=== PATIENT | female | born 1950 | race Caucasian/White ===

== ENCOUNTER 2017-09-20 16:23 | Emergency (ER) | payer MEDICARE, BC ==
[~2017-09-20] VITALS: Ht 160 cm; Wt 60.0 kg
[~2017-09-20 16:23] MED LIST: ASPI-1265 PO; LISI-600 PO; SYN0.025T PO
[2017-09-20 16:50] LABS: BASOPHILS % (AUTO) 0.1 % (0-1); EOSINOPHILS # (AUTO) 0.1 X10'3 (0-0.9); HEMATOCRIT 38.2 % (35.0-45.0); HEMOGLOBIN 13.1 g/dl (12.0-16.0); LYMPHOCYTES # (AUTO) 1.6 X10'3 (1.1-4.8); LYMPHOCYTES % (AUTO) 12.8 % (21-51); MEAN CORPUSCULAR HEMOGLOBIN 32.5 PG (27.0-31.0); MEAN CORPUSCULAR HGB CONC 34.3 % (33.0-36.5); MEAN CORPUSCULAR VOLUME 94.6 FL (78-98); MEAN PLATELET VOLUME 7.5 FL (7.4-10.4); MONOCYTES # (AUTO) 1.1 X10'3 (0-0.9); MONOCYTES % (AUTO) 9.4 % (2-12); NEUTROPHILS # (AUTO) 9.3 X10'3 (1.8-7.7); NEUTROPHILS % (AUTO) 76.7 % (42-75); PLATELET COUNT 229 X10'3 (140-440); RED BLOOD COUNT 4.04 X10'6 (4.20-5.60); RED CELL DISTRIBUTION WIDTH 13.6 % (11.5-14.5); WHITE BLOOD COUNT 12.2 X10'3 (4.5-11.0)
[2017-09-20 17:05] LABS: ALANINE AMINOTRANSFERASE 29 U/L (12-78); ALBUMIN 3.6 G/DL (3.4-5.0); ALBUMIN/GLOBULIN RATIO 0.9 (1.1-1.5); ALKALINE PHOSPHATASE 101 IU/L (46-116); ANION GAP 9 (8-16); ASPARTATE AMINO TRANSFERASE 9 U/L (10-37); BILIRUBIN,TOTAL 0.2 MG/DL (0.1-1.0); BLOOD UREA NITROGEN 16 MG/DL (7-18); BUN/CREATININE RATIO 15.8 (6.6-38.0); CALCIUM 8.6 MG/DL (8.5-10.1); CHLORIDE 104 MMOL/L (99-107); CREATININE 1.01 MG/DL (0.40-0.90); GLUCOSE 130 MG/DL (70-104); LIPASE 104 U/L (73-393); MAGNESIUM 2.1 MG/DL (1.5-2.4); POTASSIUM 4.1 MMOL/L (3.5-5.1); SODIUM 140 MMOL/L (135-145); TOTAL CARBON DIOXIDE 27.5 MMOL/L (24-32); TOTAL PROTEIN 7.7 G/DL (6.4-8.2); eGFR 55 ML/MIN
[2017-09-20] MEDS ORDERED: ondansetron/PF 4mg/2ml inj IV ONE (17:45)
[2017-09-20] MEDS ORDERED: morphine 4 MG/ML inj SYRINge IV ONE (17:45)
[2017-09-20] MEDS ORDERED: normal saline 1000ML IV soln IVB ONE (17:45)
[2017-09-20 17:57] LABS: COLOR,URINE YELLOW (Yellow); GLUCOSE, URINE NEGATIVE (Neg); KETONES,URINE TRACE mg/dl (Neg); LEUKOCYTE ESTERASE ,URINE SMALL (Neg); NITRITES, URINE NEGATIVE (Neg); OCCULT BLOOD,URINE NEGATIVE (Neg); PROTEIN,URINE NEGATIVE (Neg); UROBILINOGEN,URINE 0.2 E.U/dL (0.2-1.0)
[2017-09-20 18:00] LABS: CLARITY,URINE SLIGHTLY CLOUDY (Clear); UA COLLECTION TYPE CLN CATCH MIDSTREAM
[2017-09-20 18:07] LABS: BACTERIA,URINE FEW /HPF (Neg); MUCUS STRANDS MODERATE /LPF (Neg); RBC,URINE NONE SEEN /HPF (0-2); SQUAMOUS EPITHELIAL CELL,UR FEW /LPF (FEW)
[2017-09-20 18:11] LABS: WBC CLUMPS,URINE FEW /HPF (NEGATIVE)
[2017-09-20] MEDS ORDERED: ciprofloxacin 250mg tablet PO ONE (18:55)
[2017-09-20] MEDS ORDERED: metroNIDAZOLE 500mg tablet PO ONE (18:55)
[2017-09-20] MEDS ORDERED: METR500T4 PO (19:12)
[2017-09-20] MEDS ORDERED: HYDR-3965 PO (19:12)
[2017-09-20] MEDS ORDERED: ONDA4TAB12 PO (19:12)
[2017-09-20] MEDS ORDERED: CIPR-230 PO (19:12)
[2017-09-20 19:45] VITALS: BP 153/86
== END 2017-09-20 19:40 | disposition home or self-care (01) ==
LOC: ER 16:24
DX: K57.32 Diverticulitis of large intestine without perforation or abscess without bleeding (principal); R10.30 Lower abdominal pain, unspecified; E78.00 Pure hypercholesterolemia, unspecified; I10 Essential (primary) hypertension; Z86.73 Personal history of transient ischemic attack (TIA), and cerebral infarction without residual deficits; Z90.710 Acquired absence of both cervix and uterus; Z79.82 Long term (current) use of aspirin; Z79.899 Other long term (current) drug therapy; Z88.6 Allergy status to analgesic agent; Z88.8 Allergy status to other drugs, medicaments and biological substances; Z91.011 Allergy to milk products
CPT/HCPCS: 36415; 74176; 80053; 81001; 83690; 83735; 84484; 85025; 87088; 96374; 96375; 99285; J2270; J2405; J3490; J7030

== ENCOUNTER 2020-10-19 06:11 | Emergency (ER) | payer MEDICARE, OTHER ==
[~2020-10-19] VITALS: Ht 160 cm; Wt 56.4 kg
[~2020-10-19 06:11] MED LIST changes: -LISI-600 PO; +LISI20TA28 PO; +ONDA4TAB12 PO
[2020-10-19 06:29] VITALS: BP 132/65
[2020-10-19 07:04] LABS: CLARITY,URINE CLOUDY (Clear); COLOR,URINE YELLOW (Yellow); GLUCOSE, URINE NEGATIVE (Neg); KETONES,URINE NEGATIVE (Neg); LEUKOCYTE ESTERASE ,URINE LARGE (Neg); NITRITES, URINE POSITIVE (Neg); OCCULT BLOOD,URINE SMALL (Neg); PH,URINE 6.5 (4.8-8.0); PROTEIN,URINE NEGATIVE (Neg); UROBILINOGEN,URINE 0.2 E.U/dL (0.2-1.0)
[2020-10-19 07:11] LABS: UA COLLECTION TYPE CLN CATCH MIDSTREAM
[2020-10-19 07:12] LABS: WBC,URINE TNTC /HPF (0-4)
[2020-10-19 07:13] LABS: BACTERIA,URINE 4+ /HPF (Neg); MUCUS STRANDS NONE SEEN /LPF (Neg); RBC,URINE NONE SEEN /HPF (0-2); SQUAMOUS EPITHELIAL CELL,UR FEW /LPF (FEW)
[2020-10-19] MEDS ORDERED: DOXYCYCLINE 100MG CAPSULE PO STA (07:31)
[2020-10-19] MEDS ORDERED: PHEN-824 PO (07:33)
[2020-10-19] MEDS ORDERED: DOXY100C2 PO (07:33)
[2020-10-19] MEDS ORDERED: phenazopyridine 100mg tablet PO ONE (07:35)
== END 2020-10-19 08:19 | disposition home or self-care (01) ==
LOC: ER 06:12
DX: S60.221A Contusion of right hand, initial encounter (principal); N39.0 Urinary tract infection, site not specified; E78.00 Pure hypercholesterolemia, unspecified; I10 Essential (primary) hypertension; Z91.011 Allergy to milk products; Z88.1 Allergy status to other antibiotic agents; Z79.899 Other long term (current) drug therapy; X58.XXXA Exposure to other specified factors, initial encounter; Y93.89 Activity, other specified; Y92.89 Other specified places as the place of occurrence of the external cause; Y99.8 Other external cause status
CPT/HCPCS: 73130; 81001; 87077; 87088; 87186; 99284

== ENCOUNTER 2023-01-19 05:48 | Emergency (ER) | payer MEDICARE ==
[~2023-01-19] VITALS: Ht 160 cm; Wt 59.8 kg
[~2023-01-19 05:48] MED LIST changes: +PHEN-824 PO
[2023-01-19 05:51] VITALS: BP 180/84; PULSE 71; RESP 16; TEMP 97.8; O2SAT 99
== END 2023-01-19 10:44 | disposition home or self-care (01) ==
LOC: ER 05:48
DX: R22.1 Localized swelling, mass and lump, neck (principal); I10 Essential (primary) hypertension; E78.00 Pure hypercholesterolemia, unspecified; Z91.011 Allergy to milk products; Z88.8 Allergy status to other drugs, medicaments and biological substances; Z88.5 Allergy status to narcotic agent; Z91.82 Personal history of military deployment; Z79.899 Other long term (current) drug therapy; Z90.710 Acquired absence of both cervix and uterus
CPT/HCPCS: 76882; 99284

== ENCOUNTER 2024-12-04 09:16 | Outpatient (CLI) | payer MEDICARE ==
[~2024-12-04 09:16] MED LIST changes: +ONDA-243 PO; -ONDA4TAB12 PO
--- NOTE | 2024-12-04 13:18 | RADIOLOGY REPORT ---
EXAM: MR MRI LOWER EXTREMITY LEFT CLINICAL INDICATION: PAIN IN LEFT KNEE COMPARISON: None TECHNIQUE: Multiplanar, multisequence MRI of the left tibia-fibula (lower leg) was performed without intravenous contrast. Contralateral leg is included on some of the sequences. Contrast: None INTERPRETATION: Bones: There is no fracture or bone marrow edema. There is no marrow replacing lesion. Joints: Please note that the knee and ankle joints are not evaluated due to large field of view and a rtifact at the edge of the images. Soft tissues: There is mild bone marrow edema in the anterior extensor muscle compartment in the exte nsor digitorum longus muscle. There is also mild edema in the soleus muscle. There is no muscle atrop hy. There is no soft tissue mass or fluid collection. Large [id number] images show no acute bone or soft tissue abnormality in the contralateral lower e xtremity. IMPRESSION: 1. Mild edema in the extensor digitorum longus and soleus muscles, nonspecific but may reflect muscle strains. No fluid collection or muscle atrophy. 2. No acute osseous injury or suspicious bone lesion in the right tibia or fibula. If there is any co ncern for knee injury, a dedicated MRI of the left knee is suggested.
== END 2024-12-04 23:59 | disposition home or self-care (01) ==
LOC: MRI02 09:16
PROVIDERS: ATTEND Family Medicine Sports Medicine
DX: M25.562 Pain in left knee (principal); M17.12 Unilateral primary osteoarthritis, left knee; M21.162 Varus deformity, not elsewhere classified, left knee; S46.211A Strain of muscle, fascia and tendon of other parts of biceps, right arm, initial encounter; M77.9 Enthesopathy, unspecified; R93.7 Abnormal findings on diagnostic imaging of other parts of musculoskeletal system; X58.XXXA Exposure to other specified factors, initial encounter; Y93.89 Activity, other specified; Y92.89 Other specified places as the place of occurrence of the external cause; Y99.8 Other external cause status
CPT/HCPCS: 73721